=== PATIENT | female | born 1950 | race Two or more races ===

== ENCOUNTER 2018-06-25 05:20 | Day surgery (SDC) | payer OTHER ==
[~2018-06-25 05:20] MED LIST: ESTAZOLAM2 MG PO; LITHIUM CARBON300 MG PO; NEURONTIN800 MG PO; OLANZAPINE2.5 MG PO; OMEPRAZOLE20 M1 PO; TRAMADOL HCL50 MG PO; VASOTEC5 MG PO; VENLAFAXINE HCL75 MG PO
[2018-06-25] MEDS ORDERED: RECTICARE30 GM TOP (08:37)
[2018-06-25] MEDS ORDERED: ULTRACET PO (08:37)
== END 2018-06-25 12:10 | disposition home or self-care (01) ==
LOC: CIR.AMB 05:20
DX: K62.6 Ulcer of anus and rectum (principal); K62.4 Stenosis of anus and rectum

== ENCOUNTER 2019-08-13 05:48 | Day surgery (SDC) | payer OTHER ==
[~2019-08-13 05:48] MED LIST changes: +RECTICARE30 GM TOP; +ULTRACET PO
== END 2019-08-13 12:30 | disposition home or self-care (01) ==
LOC: AMB-ENDOS 05:48
DX: K62.89 Other specified diseases of anus and rectum (principal); K62.6 Ulcer of anus and rectum; K62.7 Radiation proctitis